=== PATIENT | female | born 1990 | race Caucasian/White ===

== ENCOUNTER 2017-11-08 06:54 | Inpatient (IN) | payer BC ==
[~2017-11-08] VITALS: Ht 154.9 cm; Wt 63.2 kg
[2017-11-14] VITALS (43 sets, daily range): BP systolic 99–152; BP diastolic 51–99; PULSE 56–155; TEMP 97.9–98.9
[2017-11-14] MEDS ORDERED: CONCEPT DHA1 CAP PO (07:52)
[2017-11-14] MEDS ORDERED: SLOW FE142 MG PO (07:53)
[2017-11-14 09:05] LABS: BASO % 0.4 % (0.0-2.0); EOS # 0.1 (0.0-0.7); EOS % 0.9 % (0-4.0); GRAN # 6.4 (1.4-6.5); GRAN % 78.6 % (42.2-75.2); HEMOGLOBIN 12.3 g/dl (12.5-16.0); LYMPH # 1.1 (1.2-3.4); LYMPH % 13.3 % (20.0-51.0); MEAN CELL VOLUME 88 fl (80.0-100.0); MEAN CORPUSCULAR HEMOGLOBIN 30 pg (27.0-31.0); MEAN CORPUSCULAR HGB CONC 34 g/dl (33.0-37.0); MEAN PLATELET VOLUME 11.4 fl (7.4-10.4); MONO # 0.5 (0.1-0.6); MONO % 5.7 % (1.7-9.3); PLATELET COUNT 138 K/mm3 (130-400); RED BLOOD COUNT 4.12 M/mm3 (4.10-5.30); REDCELL DISTRIBUTION WIDTH-CV 12.2 % (11.5-14.5)
[2017-11-14 09:11] LABS: HEMATOCRIT 36.4 % (37.0-47.0)
[2017-11-15 01:15] VITALS: BP 110/74; PULSE 66; TEMP 98.2
[2017-11-15 05:05] VITALS: BP 117/65; PULSE 67; TEMP 98
[2017-11-15 08:30] VITALS: BP 112/70; PULSE 68; TEMP 98.4
[2017-11-15] MEDS ORDERED: IBU800 M1 PO (08:41)
[2017-11-15] MEDS ORDERED: PERCOCET 325 MG1 TA2 PO (08:41)
[2017-11-15 12:34] VITALS: BP 108/64; PULSE 73; TEMP 98.1
[2017-11-15 17:04] VITALS: BP 120/68; PULSE 80; TEMP 98.4
[2017-11-15 20:45] VITALS: BP 133/70; PULSE 69; TEMP 98.2
[2017-11-16 07:57] VITALS: BP 112/58; PULSE 86; TEMP 97.3
== END 2017-11-16 14:00 | disposition home or self-care (01) | DRG 775 ==
LOC: LDR 11-14 06:53 → OB 11-14 21:21
PROVIDERS: Student in an Organized Health Care Education/Training Program
PROC: 10E0XZZ Delivery of Products of Conception, External Approach (ICD-10-PCS; principal; 2017-11-14)
PROC: 0KQM0ZZ Repair Perineum Muscle, Open Approach (ICD-10-PCS; 2017-11-14)
PROC: 3E033VJ Introduction of Other Hormone into Peripheral Vein, Percutaneous Approach (ICD-10-PCS; 2017-11-14)
PROC: 10907ZC Drainage of Amniotic Fluid, Therapeutic from Products of Conception, Via Natural or Artificial Opening (ICD-10-PCS; 2017-11-14)
DX: O48.0 Post-term pregnancy (principal); O70.1 Second degree perineal laceration during delivery; Z37.0 Single live birth; Z3A.40 40 weeks gestation of pregnancy; O99.02 Anemia complicating childbirth
CPT/HCPCS: J2405; J2590; J7120

== ENCOUNTER → 2020-09-12 | Outpatient (CLI) | payer BC ==
[~2020-09-12] MED LIST: CONCEPT DHA1 CAP PO; FERROUSGLUC256MG; IBU800 M1 PO; PERCOCET 325 MG1 TA2 PO; PREDNISONE 5MG5 MG PO; PRENATAL TABLET PO; SLOW FE142 MG PO
== END ==
LOC: ZCOL.LAB 09-05 09:31
DX: O98.513 Other viral diseases complicating pregnancy, third trimester (principal); Z20.822 Contact with and (suspected) exposure to COVID-19; Z3A.39 39 weeks gestation of pregnancy

== ENCOUNTER 2020-09-15 05:40 | Inpatient (IN) | payer BC ==
[2020-09-15] VITALS (19 sets, daily range): BP systolic 87–130; BP diastolic 53–73; PULSE 68–91; TEMP 98–98.6
[~2020-09-15] VITALS: Ht 154.9 cm; Wt 63.9 kg
[~2020-09-15 05:40] MED LIST changes: -FERROUSGLUC256MG; -PREDNISONE 5MG5 MG PO; -PRENATAL TABLET PO
--- NOTE | 2020-09-15 06:15 | NUR ---
Patient ambulatory to [facility] for scheduled primary for breech presentation. Plan of care reviewed with patient. EFMs explained and applied. VSS. Consents signed. IV started in left hand with labs drawn from site and LR infusing per orders and protocol.
[2020-09-15] MEDS ORDERED: PRENATAL TABLET PO (06:25)
[2020-09-15] MEDS ORDERED: FERROUSGLUC256MG ×2 (06:26→06:27)
[2020-09-15] MEDS ORDERED: PREDNISONE 5MG5 MG PO (06:26)
[2020-09-15 06:34] LABS: HEMOGLOBIN 11.2 g/dl (12.5-16.0); MEAN CELL VOLUME 89 fl (80.0-100.0); MEAN CORPUSCULAR HEMOGLOBIN 30 pg (27.0-31.0); MEAN CORPUSCULAR HGB CONC 34 g/dl (33.0-37.0); MEAN PLATELET VOLUME 10.8 fl (7.4-10.4); PLATELET COUNT 143 K/mm3 (130-400); RED BLOOD COUNT 3.73 M/mm3 (4.10-5.30); REDCELL DISTRIBUTION WIDTH-CV 13.7 % (11.5-14.5)
[2020-09-15 06:52] LABS: HEMATOCRIT 33.1 % (37.0-47.0)
[2020-09-15 08:03] LABS: BAND 4 % (0-10); LYMPHOCYTE 31 % (20.0-51.0); NEUTROPHILS 60 % (42.0-75.2); PLATELET ESTIMATE NORMAL (NORMAL); TEAR DROP CELLS 1+
[2020-09-15] MEDS ORDERED: PERCOCET 325 MG1 TA2 PO (08:10)
[2020-09-15] MEDS ORDERED: IBU800 M1 PO (08:10)
[2020-09-16 00:40] VITALS: BP 118/67; PULSE 78; TEMP 97.9
[2020-09-16 06:59] VITALS: BP 111/67; PULSE 88; TEMP 97.4
[2020-09-16 07:15] LABS: BASO % 0.5 % (0.0-2.0); EOS # 0.1 (0.0-0.7); EOS % 1.8 % (0-4.0); GRAN # 5.5 (1.4-6.5); GRAN % 74.7 % (42.2-75.2); LYMPH # 1.1 (1.2-3.4); LYMPH % 15.6 % (20.0-51.0); MEAN CELL VOLUME 93 fl (80.0-100.0); MEAN CORPUSCULAR HGB CONC 32 g/dl (33.0-37.0); MEAN PLATELET VOLUME 9.9 fl (7.4-10.4); MONO # 0.5 (0.1-0.6); MONO % 6.2 % (1.7-9.3); PLATELET COUNT 94 K/mm3 (130-400); RED BLOOD COUNT 3.22 M/mm3 (4.10-5.30)
[2020-09-16 07:31] LABS: HEMOGLOBIN 9.7 g/dl (12.5-16.0); MEAN CORPUSCULAR HEMOGLOBIN 30 pg (27.0-31.0)
[2020-09-16 17:15] VITALS: BP 111/63; PULSE 80; TEMP 98.4
[2020-09-16 21:15] VITALS: BP 120/74; PULSE 81; TEMP 97.8
[2020-09-17 06:00] LABS: BASO % 0.4 % (0.0-2.0); EOS # 0.1 (0.0-0.7); GRAN # 4.9 (1.4-6.5); GRAN % 69.3 % (42.2-75.2); HEMOGLOBIN 10.1 g/dl (12.5-16.0); LYMPH # 1.6 (1.2-3.4); LYMPH % 22.8 % (20.0-51.0); MEAN CELL VOLUME 92 fl (80.0-100.0); MEAN CORPUSCULAR HEMOGLOBIN 30 pg (27.0-31.0); MEAN CORPUSCULAR HGB CONC 33 g/dl (33.0-37.0); MEAN PLATELET VOLUME 9.8 fl (7.4-10.4); MONO # 0.3 (0.1-0.6); MONO % 4.2 % (1.7-9.3); PLATELET COUNT 110 K/mm3 (130-400); RED BLOOD COUNT 3.36 M/mm3 (4.10-5.30); REDCELL DISTRIBUTION WIDTH-CV 13.9 % (11.5-14.5)
[2020-09-17 09:00] VITALS: BP 117/64; PULSE 75; TEMP 98.4
== END 2020-09-17 11:20 | disposition home or self-care (01) | DRG 787 ==
LOC: LDR 05:40 → OB 10:42
PROVIDERS: Obstetrics & Gynecology; ADMIT Student in an Organized Health Care Education/Training Program
PROC: 10D00Z1 Extraction of Products of Conception, Low, Open Approach (ICD-10-PCS; principal; 2020-09-15)
DX: O32.1XX0 Maternal care for breech presentation, not applicable or unspecified (principal); O99.12 Other diseases of the blood and blood-forming organs and certain disorders involving the immune mechanism complicating childbirth; O99.02 Anemia complicating childbirth; Z3A.39 39 weeks gestation of pregnancy; Z37.0 Single live birth; D64.9 Anemia, unspecified
CPT/HCPCS: J7120

== ENCOUNTER 2021-04-03 00:25 | Emergency (ER) | payer BC ==
[~2021-04-03] VITALS: Ht 154.9 cm; Wt 49.1 kg
[~2021-04-03 00:25] MED LIST changes: +FERROUSGLUC256MG; +PREDNISONE 5MG5 MG PO; +PRENATAL TABLET PO
[2021-04-03 00:41] VITALS: TEMP 97.8
[2021-04-03 00:57] LABS: BASO % 0.4 % (0.0-2.0); EOS # 0.2 K/mm3 (0.0-0.7); GRAN # 2.4 K/mm3 (1.4-6.5); GRAN % 53.7 % (42.2-75.2); HEMATOCRIT 36.7 % (37.0-47.0); HEMOGLOBIN 12.5 g/dl (12.5-16.0); LYMPH # 1.5 K/mm3 (1.2-3.4); LYMPH % 34.1 % (20.0-51.0); MEAN CELL VOLUME 83 fl (80.0-100.0); MEAN CORPUSCULAR HEMOGLOBIN 28 pg (27-31); MEAN CORPUSCULAR HGB CONC 34 g/dl (33.0-37.0); MEAN PLATELET VOLUME 9.9 fl (7.4-10.4); MONO # 0.3 K/mm3 (0.1-0.6); MONO % 7.6 % (1.7-9.3); PLATELET COUNT 206 K/mm3 (130-400); RED BLOOD COUNT 4.44 M/mm3 (4.10-5.30); REDCELL DISTRIBUTION WIDTH-CV 11.7 % (11.5-14.5)
[2021-04-03 01:19] LABS: ALANINE AMINOTRANSFERASE 13 U/L (0-55); ALBUMIN 4.5 gm/dL (3.5-5.0); ALKALINE PHOSPHATASE 61 U/L (40-150); ANION GAP 12 mmol/L (7-16); AST,SGOT 16 U/L (5-34); BILIRUBIN,TOTAL 0.9 mg/dL (0.2-1.2); BLOOD UREA NITROGEN 12 mg/dL (7-19); CALCIUM 9.3 mg/dL (8.4-10.2); CARBON DIOXIDE 22 mmol/L (22-29); CHLORIDE 103 mmol/L (98-107); CREATININE, serum 0.75 mg/dL (0.57-1.11); GLUCOSE 107 mg/dL (70-99); SODIUM 137 mmol/L (136-145)
[2021-04-03 01:30] LABS: TROPONIN-I < 0.010 ng/mL (0.00-0.033)
[2021-04-03 03:08] VITALS: BP 120/78; PULSE 76
== END 2021-04-03 03:08 | disposition home or self-care (01) ==
LOC: COL.ER 00:25
PROVIDERS: Emergency Medicine
DX: R07.89 Other chest pain (principal); Z86.16 Personal history of COVID-19